=== PATIENT | male | born 1940 | race Caucasian/White ===

== ENCOUNTER → 2021-08-15 | Outpatient (CLI) | payer OTHER ==
[~2021-08-15] MED LIST: BUDESONIDE EC3 MG PO; CARVEDILOL25 MG PO; CELEXA 10 MG TA10 M1 PO; COLESTIPOL HCL1 G1 PO; FUROSEMIDE 40 M40 M1 PO; K-DUR10 MEQ PO; MULTIVITAMIN200 MCG PO; PRESERVISION A1 EAC2 PO; PREVAGEN PO; PRINIVIL40 MG PO; SUPER B MAXI C0.4 MG PO; VITAMIN B-12500 MC5 PO; WARFARIN SODIUM1 MG PO; WARFARIN SODIUM4 MG PO
[2021-08-15 13:16] LABS: HEMATOCRIT 35.9 % (42.0-52.0); HEMOGLOBIN 11.3 gm/dL (14.0-18.0); MCH 28.8 pg (26.0-34.0); MCHC 31.5 g/dL (28.0-37.0); MCV 91.3 fL (80.0-100.0); RBC 3.93 mil/uL (4.50-6.00); RDW 16.8 % (10.5-14.5); WBC 5.8 thou/uL (4.0-11.0)
[2021-08-15 13:18] LABS: URINE BILIRUBIN NEGATIVE (Negative); URINE BLOOD NEGATIVE (Negative); URINE CLARITY CLEAR; URINE COLOR YELLOW; URINE GLUCOSE-RANDOM* NEGATIVE (Negative); URINE KETONES NEGATIVE (Negative); URINE LEUKOCYTES-REFLEX NEGATIVE (Negative); URINE NITRITE-REFLEX NEGATIVE (Negative); URINE PROTEIN (DIPSTICK) NEGATIVE (Negative); URINE SPECIFIC GRAVITY 1.025 (1.005-1.035); URINE UROBILINOGEN 0.2 E.U./dl (0.2-1.0)
[2021-08-15 13:29] LABS: INR 3.05; PROTIME 31.5 Seconds (10.5-12.1)
[2021-08-15 13:38] LABS: ALBUMIN 3.8 g/dL (3.4-5.0); CALCIUM 9.1 mg/dL (8.5-10.1); CREATININE 1.4 mg/dL (0.7-1.3); POTASSIUM 4.2 mmol/L (3.5-5.1); TOTAL BILIRUBIN 0.3 mg/dL (0.2-1.0); TOTAL PROTEIN 6.6 g/dL (6.4-8.2)
--- NOTE | 2021-08-16 07:03 | EKG ---
[place] [address] [facility] [place] [address] ELECTROCARDIOGRAM REPORT Name: MANDA CAMPBELL Room #: [facility]#: [id number] Admission: 08/15/21 Attend Phys: Andrey Abbasi, Discharge: Date of : 36 Report #: [id number] [facility] Test Date: 2021-08-15 Test Time: 12:19:47 Pat Name: MANDA CAMPBELL Department: Room: Gender: Soup Person: Liliane BERNAL : 1940 Requested By: Andrey Abbasi Order Number: [id number] MD: Waqas Sullivan Measurements Intervals [place] Rate: 75 P: 68 NM: 191 QRS: -27 QRSD: 116 T: -26 QT: 412 QTc: 461 Interpretive Statements Sinus rhythm Probable left atrial enlargement Incomplete left bundle branch block Anterior Q waves, possibly due to ILBBB No previous ECG available for comparison Electronically Signed On 08-16-2021 7:02:52 CDT by Waqas Sullivan [email or web address] <ELECTRONICALLY SIGNED> By: Waqas Sullivan MD, [facility] 08/16/21 0702 D: 10/1218 18 Waqas Sullivan MD, FACC /EPI
== END ==
LOC: PAC 10:35
PROVIDERS: ATTEND Specialist
DX: Z01.810 Encounter for preprocedural cardiovascular examination (principal); Z01.812 Encounter for preprocedural laboratory examination; I44.7 Left bundle-branch block, unspecified

== ENCOUNTER → 2021-08-21 | Outpatient (CLI) | payer OTHER ==
[~2021-08-21] MED LIST changes: +ATORVASTATIN CA80 MG PO
== END ==
LOC: RAD 10:50 → CAT 13:28
PROVIDERS: ATTEND Specialist
DX: M47.814 Spondylosis without myelopathy or radiculopathy, thoracic region (principal); M41.84 Other forms of scoliosis, thoracic region; M48.04 Spinal stenosis, thoracic region; Z01.818 Encounter for other preprocedural examination

== ENCOUNTER 2021-08-27 13:22 | Inpatient (IN) | payer OTHER ==
[~2021-08-27] VITALS: Ht 170.2 cm; Wt 75.9 kg
[~2021-08-27 13:22] MED LIST changes: -ATORVASTATIN CA80 MG PO
[2021-08-27 14:36] LABS: APTT 23.9 Seconds (24.5-32.8); INR 1.06; PROTIME 11.5 Seconds (10.5-12.1)
[2021-08-27 20:07] VITALS: BP 148/78
[2021-08-27 23:41] VITALS: BP 151/78
[2021-08-28 04:27] VITALS: BP 150/79
--- NOTE | 2021-08-28 04:45 | NUR ---
RECEIVED CARE OF THIS PATIENT AT 1928 FROM PACU. PATIENT ALERT AND ORIENTED X4. DRESSING ON BACK D/I. REMAINS ON BEDREST FOR THE SHIFT D/T TYPE OF SURGERY. HAS TEDS AND SCD'S ON. SLEPT MOST OF NIGHT.C/O MILD PAIN.
[2021-08-28 08:10] VITALS: BP 141/66
--- NOTE | 2021-08-28 09:10 | NUR ---
85 year old male admitted for Trans Thoracic Discectomy with HT and Hx of SD. Patient lives home alone and has listed daughter Amanda Greenwood at [phone] and Son Jose Luis Hicks at [phone] as family and authorized contacts and his support system. The patient has PT orders and will follow for recommendations from therapy and neurosurgery. CM will follow for d/c needs based on medical assessment and therapy recommendations. He up working with OT, A & o x 3 with some forgetfulness. Pleasant and able to make his needs know. He lives alone, independent, has walker, manage own medication in a pill box, son and daughter work. He drives, home health in the past and been to rehab in [facility], post acute and does not want to return to the facility in [place], his family would like him to go to acute rehab here per OT.
[2021-08-28 10:11] LABS: ABSOLUTE NEUTROPHILS 7.5 thou/uL (1.4-8.2); BASOPHILS 0.5 % (0.0-2.0); HEMATOCRIT 35.3 % (42.0-52.0); LYMPHOCYTES 7.7 % (24.0-44.0); MCH 29.1 pg (26.0-34.0); MCHC 31.3 g/dL (28.0-37.0); MCV 92.8 fL (80.0-100.0); MONOCYTES 7.3 % (1.0-8.0); PLATELET COUNT 168 thou/uL (150-400); POLYS 84.5 % (36.0-66.0); WBC 8.9 thou/uL (4.0-11.0)
[2021-08-28 10:24] LABS: ALBUMIN 3.6 g/dL (3.4-5.0); CALCIUM 8.7 mg/dL (8.5-10.1); CREATININE 1.7 mg/dL (0.7-1.3); MAGNESIUM 1.9 mg/dL (1.8-2.4); TOTAL BILIRUBIN 0.4 mg/dL (0.2-1.0)
--- NOTE | 2021-08-28 10:52 | NUR ---
Assumed care of pt 0700. Pt alert but forgetful at times. Pain controlled. Dressing c/d/i. Pt working wit OT and physical therapy today. Call light within reach. Fall precautions in place. Will continue to monitor.
[2021-08-28] MEDS ORDERED: ATORVASTATIN CA80 MG PO (12:04)
[2021-08-28 16:17] VITALS: BP 152/73
[2021-08-28 21:24] VITALS: BP 124/65
--- NOTE | 2021-08-29 04:20 | NUR ---
RECEIVED CARE OF THIS PATIENT AT 1900. PATIENT ALERT AND ORIENTED X4. UP AD CRYSTAL TO BATHROOM. DRESSING ON BACK INTACT. C/O ONLY MILD PAIN. C/O DIARRHEA, MIRALAX REFUSED. SLEPT OFF AND ON DURING NIGHT.
[2021-08-29 05:29] LABS: ABSOLUTE NEUTROPHILS 4.5 thou/uL (1.4-8.2); BASOPHILS 0.5 % (0.0-2.0); HEMATOCRIT 31.7 % (42.0-52.0); HEMOGLOBIN 10.2 gm/dL (14.0-18.0); LYMPHOCYTES 11.2 % (24.0-44.0); MCH 29.5 pg (26.0-34.0); MCHC 32.1 g/dL (28.0-37.0); MCV 92.1 fL (80.0-100.0); MONOCYTES 14.1 % (1.0-8.0); PLATELET COUNT 122 thou/uL (150-400); POLYS 73.2 % (36.0-66.0); RBC 3.44 mil/uL (4.50-6.00); WBC 6.1 thou/uL (4.0-11.0)
[2021-08-29 06:04] LABS: CALCIUM 8.2 mg/dL (8.5-10.1); CREATININE 1.4 mg/dL (0.7-1.3); MAGNESIUM 1.9 mg/dL (1.8-2.4); POTASSIUM 4.1 mmol/L (3.5-5.1)
[2021-08-29 07:10] VITALS: BP 152/76
--- NOTE | 2021-08-29 10:10 | NUR ---
Assumed care of pt at 0700. Pt a&ox4. SBA with gaitbelt and walker. Denies pain. Dressing c/d/i. 5N vs SNF. Call light within reach. Will continue to monitor.
--- NOTE | 2021-08-29 10:23 | EKG ---
[address] [place] [address] ELECTROCARDIOGRAM REPORT Name: MANDA CAMPBELL Room #: 437-P ADM IN M.R.#: [id number] Admission: 08/27/21 Attend Phys: Andrey Abbasi, Discharge: Date of : 36 Report #: [id number] [facility] Test Date: 2021-08-27 Test Time: 15:01:37 Pat Name: MANDA CAMPBELL Department: Room: 437 P Gender: M Ship'S Captain: UNK : 1940 Requested By: Andrey Abbasi Order Number: [id number] MD: Waqas Sullivan Measurements Intervals [place] Rate: 78 P: 61 LA: 173 QRS: -43 QRSD: 115 T: 145 QT: 399 QTc: 455 Interpretive Statements Sinus rhythm LVH with IVCD, LAD and secondary repol abnrm Compared to ECG 08/15/2021 12:19:47 Intraventricular conduction delay now present Left ventricular hypertrophy now present Early repolarization now present Q waves no longer present Electronically Signed On 08-29-2021 10:22:58 CLASSROOM INSTRUCTIONAL AIDE by Waqas Sullivan [email or web address] <ELECTRONICALLY SIGNED> By: Waqas Sullivan MD, [facility] 08/29/21 1022 1501 1501 Waqas Sullivan MD, [facility] /EPI
--- NOTE | 2021-08-29 11:24 | NUR ---
Discussed during los with hospitalist, therapy recommendation: rehab vs post-acute. 5N consult, would also needs insurance auth from [facility] if accepted to 5n acute rehab or skilled rehab.
--- NOTE | 2021-08-29 14:57 | NUR ---
CALLED [facility] TO START AUTHORIZATION PROCESS FOR ACUTE REHAB. SPOKE W/ ELISHA. PENDING AUTH #[id number]. [facility] WILL CONTACT REHAB ADMISSIONS TO REQUEST CLINICAL INFORMATION, PER ELISHA.
--- NOTE | 2021-08-29 15:51 | NUR ---
RECEIVED CALL FROM RACHEL AT [facility] WHO REQUESTED CLINICAL INFORMATION REGARDING ACUTE REHAB AUTHORIZATION. CLINICAL INFORMATION FAXED TO ROCAEL WANG AT [facility], AT [phone]. KATHLEEN'S PHONE IS [phone] [phone]. AWAITING RESPONSE.
[2021-08-29 15:52] VITALS: BP 135/67
[2021-08-29 19:06] VITALS: BP 128/60
--- NOTE | 2021-08-30 01:30 | NUR ---
ASSESSED AT START OF SHIFT. PT RESTING IN BED. UP WITH SBA TO THE BATHROOM. AQUACEL DRESSING C/D/I. PT HAD A M THIS SHIFT. FALL PREC IN PLACE AND CALL LIGHT AT REACH WILL CONT TO MONITOR.
[2021-08-30 03:54] VITALS: BP 150/78
[2021-08-30 08:17] VITALS: BP 150/68
--- NOTE | 2021-08-30 08:30 | NUR ---
Toby notified by Gema with [facility] that the medical claims examiner reviewed and denied auth for acute rehab, p2p by 09/03/21 at 1100, # [phone]. Toby passed on information to attending hospitalist and 5n liaison. 5n AMMONIUM SULFATE OPERATOR going to complete p2p today at 1330. Toby visited with Braxton and his daughter in law at bedside. Back up skilled facility family and Braxton picked was [facility] in [place], # [phone], fax [phone]. Will cont. following as needed.
--- NOTE | 2021-08-30 15:30 | NUR ---
NOTICE OF AUTHORIZATION DENIAL RECEIVED. PEER TO PEER COMPLETED THIS DATE BY REHAB [facility] AND DENIAL WAS UPHELD. HOT POND OPERATOR NOTIFIED OF DENIAL. THANK YOU FOR THIS REFERRAL.
[2021-08-30 15:58] VITALS: BP 141/72
--- NOTE | 2021-08-30 18:30 | NUR ---
PT ASSESSED AT START OF SHIFT. PT C/O DIARRHEA AND WANTING HOME MEDS FOR THIS. MEDS ORDERED AND BM'S SLOWING DOWN. HAVING MORE SOLID PIECES AND PASSING GAS. EATING AND DRINKING WELL. STATES NO MORE BACK PAIN. AMBULATING WELL W/ STANDBY USING WALKER.
[2021-08-30 19:04] VITALS: BP 132/66
--- NOTE | 2021-08-31 04:44 | NUR ---
ASSUMED PT CARE AT 1900.PT DENIED PAIN SO FAR.UP WITH ASSIST TO THE BSC.NO C/O DIARRHEA NOTED SO FAR.PT ABLE TO MAKE HIS NEEDS KNOWN.PT LOOKING FORWAED TO BE DC'D SOON TO REHAB.CALL LIGHT WITHIN REACH.
[2021-08-31 04:55] VITALS: BP 157/78
[2021-08-31 07:21] VITALS: BP 149/74
[2021-08-31 08:38] VITALS: BP 149/74
--- NOTE | 2021-08-31 10:38 | NUR ---
Assumed care of pt at 0700. Pt a&ox4. Denies pain. Dressing changed. Walked the halls with physical therapy. Looking for placement. Call light within reach. Fall precautions in place. Will continue to monitor.
[2021-08-31 11:32] LABS: ABSOLUTE NEUTROPHILS 3.5 thou/uL (1.4-8.2); BASOPHILS 0.7 % (0.0-2.0); EOSINOPHILS 2.7 % (0.0-3.0); HEMATOCRIT 32.5 % (42.0-52.0); HEMOGLOBIN 10.4 gm/dL (14.0-18.0); LYMPHOCYTES 8.9 % (24.0-44.0); MCH 29.3 pg (26.0-34.0); MCHC 31.9 g/dL (28.0-37.0); MCV 91.9 fL (80.0-100.0); PLATELET COUNT 132 thou/uL (150-400); POLYS 76.7 % (36.0-66.0); RBC 3.53 mil/uL (4.50-6.00); RDW 16.7 % (10.5-14.5); WBC 4.6 thou/uL (4.0-11.0)
[2021-08-31 11:39] LABS: PROTIME 10.9 Seconds (10.5-12.1)
[2021-08-31 11:43] LABS: CALCIUM 8.7 mg/dL (8.5-10.1); CREATININE 1.5 mg/dL (0.7-1.3); MAGNESIUM 2.1 mg/dL (1.8-2.4); POTASSIUM 4.2 mmol/L (3.5-5.1); TOTAL BILIRUBIN 0.5 mg/dL (0.2-1.0); TOTAL PROTEIN 6.8 g/dL (6.4-8.2)
--- NOTE | 2021-08-31 12:04 | NUR ---
Discussed during los with attending physician, getting labs today. [facility] still requesting auth for skilled rehab. Cm notified by [facility] they have insurance auth from [facility] and can accept for skilled rehab today. Cm passed on information to hospitalist and bedside. Chart copy requested. Bedside nurse to call [place] at [place] to # [phone]. He will be able to go by wheelchair van, on RA.
--- NOTE | 2021-09-05 12:42 | HC ---
[facility] [address] [place] [address] CONSULTATION Name: MANDA CAMPBELL Room #: 437-P [facility] ..#: [id number] Admission: 08/27/21 Attend Phys: Andrey Abbasi, Discharge: 08/31/21 Date of : 36 Report #: [id number] THIS REPORT FOR: cc: Nicanor Rodriguez MD,Nicanor Yi,Luis Crouch MD ~ DATE OF SERVICE: 08/29/2021 HISTORY OF PRESENT ILLNESS: The patient is an 81-year-old white male who was having more and more problems with his gait and functional mobility with pain with limited attempts at ambulation. He was noted to have a T9-T10 herniated disk with spinal cord compression and underwent a right T9-T10 costotransversectomy with transpedicular diskectomy on 08/27/2021. He has been followed regarding chronic kidney disease. He does have multiple medical comorbidities as noted below. Denied loss of bowel or bladder. He feels that his back pain is overall improved post the surgery. We are seeing him in rehabilitation medicine consultation. PAST MEDICAL HISTORY: Includes cardiomyopathy, depression, pulmonary edema, hypertension, history of pulmonary embolism for which he was on Coumadin, coronary artery disease, status post bilateral carotid endarterectomies, right leg bypass. MEDICATIONS: Please see the full medication listing. ALLERGIES: No known drug allergies. SOCIAL HISTORY: Lives in a house alone, lost his approximately 14 months ago, single level house. There are a son and a daughter in the area both work. He used a 4-wheeled walker, premorbidly. REVIEW OF SYSTEMS: No current complaints of chest pain, shortness of breath or abdominal discomfort. PHYSICAL EXAMINATION: GENERAL: An 81-year-old white male in no obvious distress. VITAL SIGNS: Last recorded temperature 97.7, pulse 89, respirations 20, blood pressure 152/76. The patient is alert, pleasant. HEENT: Appeared to be benign. NEUROLOGIC: Cranial nerves are grossly intact. Facies are symmetric. He has the midline back incision over his posterior thoracic spine, which has a DuoDERM type dressing in place. EXTREMITIES: He has functional range of motion of the upper extremities, strength is probably a grade 4-/5. Lower extremities, no focal calf swelling, functional range of motion with strength grade 4- to 3+/5. Toilet transfers are moderate assistance. Toileting is min assist for OT. Lower extremity dressing [address] [address] CONSULTATION Name: MANDA CAMPBELL Room #: 437-P [facility] ..#: [id number] Admission: 08/27/21 Attend Phys: Andrey Abbasi, Discharge: 08/31/21 Date of : 36 Report #: [id number] is max assist. He is able to min assist with sit to stand and did ambulate 250 feet min assist with a front-wheeled walker. ASSESSMENT: An 81-year-old male with the following problem list: 1. T9-T10 herniated disk with spinal cord compression, status post right T9-T10 costotransversectomy and transpedicular diskectomy 08/27/2021. 2. Functional mobility and ADL deficits. 3. History of pulmonary embolism x2. 4. Cardiomyopathy. 5. Coronary artery disease, status post bilateral carotid endarterectomies. 6. Hypertension. 7. Chronic kidney disease. PLAN: Regarding his history of pulmonary embolism, he is okayed by Neurosurgery to resume the Coumadin postop 3 days. He is motivated to further improve his overall strength and functional mobility and ADL independence, so he can eventually return back to the home setting. He is well motivated in therapy indicates that he would be able to tolerate 3 hours per day of intensive inpatient rehabilitation. He does have the significant medical comorbidities and will need to be monitored as he is re-anticoagulated for his pulmonary embolism post-spinal surgery. Insurance precertification issues to be checked regarding a short acute in-hospital inpatient rehabilitation stay to maximize his functional independence, so he can hopefully return back to his prior living situation after an acute in-hospital inpatient rehabilitation stay. Thank you for asking us to assist in this patient's care. <ELECTRONICALLY SIGNED> By: Luis Yi MD 09/05/21 1242 1108 1950 Luis Yi MD /nt
== END 2021-08-31 16:28 | DRG 519 ==
LOC: PRE → OR 13:22 → PRE 13:41 → EDSTATUS 14:11 → OR 14:13 → PRE 14:57 → 4S 19:08 → OR 19:09 → 4S 08-31 16:28
PROVIDERS: Internal Medicine; Nurse Practitioner; ADMIT Specialist; ATTEND Specialist
PROC: 0RB90ZZ Excision of Thoracic Vertebral Disc, Open Approach (ICD-10-PCS; principal; 2021-08-27)
DX: M51.24 Other intervertebral disc displacement, thoracic region (principal); N17.9 Acute kidney failure, unspecified; G95.20 Unspecified cord compression; I42.9 Cardiomyopathy, unspecified; E87.1 Hypo-osmolality and hyponatremia; D68.59 Other primary thrombophilia; D64.9 Anemia, unspecified; I27.20 Pulmonary hypertension, unspecified; N18.30 Chronic kidney disease, stage 3 unspecified; I11.0 Hypertensive heart disease with heart failure; I25.10 Atherosclerotic heart disease of native coronary artery without angina pectoris; R53.81 Other malaise; E78.5 Hyperlipidemia, unspecified; F32.9 Major depressive disorder, single episode, unspecified; Z86.711 Personal history of pulmonary embolism; Z98.42 Cataract extraction status, left eye; Z98.41 Cataract extraction status, right eye; Z79.01 Long term (current) use of anticoagulants
CPT/HCPCS: 10102; 10195; 50010; 50101; 50402; 50850; 51878; 56525; 56528; 57103; 58456; 58457; 58567; 58745; 58759; 62110; 62900; 70005